=== PATIENT | female | born 1980 | race Caucasian/White ===

== ENCOUNTER 2016-12-12 08:37 | Emergency (ER) | payer MEDICAID ==
[~2016-12-12] VITALS: Ht 147.3 cm; Wt 66.3 kg
[2016-12-12 08:47] VITALS: BP 107/69
[2016-12-12] MEDS ORDERED: TYLENOL325 M2 PO (08:57)
--- NOTE | 2016-12-12 09:09 | NUR ---
36/F PRESENT TO ER C/O HEADACHE, NAUSEA, DIZZINESS x 2 DAYS. PAIN 5/10 ACHING NON-RADIATING. PT DENIES VOMITING OR DIARRHEA. PT DENIES TAKING ANY MEDS PRIOR TO ER VISIT. AAOx 4, PERRLA, BREATHING EVEN AND UNLABORED. ERMD NOTIFIED OF PATIENT STATUS.
[2016-12-12] MEDS ORDERED: HYDROmorphone PFS 2 MG/ML SYR IM ONE (09:40)
[2016-12-12] MEDS ORDERED: diphenhydrAMINE 50 MG/ML VIAL IM ONE (09:40)
--- NOTE | 2016-12-12 09:51 | NUR ---
PT TAKEN TO RADIOLOGY VIA WHEELCHAIR BY [facility].
--- NOTE | 2016-12-12 10:55 | NUR ---
ERMD ORDERED DILAUDID 2MG AND PT WAS GIVEN 2MG NON-WASTED
--- NOTE | 2016-12-12 11:03 | NUR ---
Patient discharged with v/s stable. Written and verbal after care instructions given and explained. Patient alert, oriented and verbalized understanding of instructions. Ambulatory with steady gait. All questions addressed prior to discharge. ID band removed. Patient advised to follow up with PMD. Rx of FIORICET TAB given. Patient educated on indication of medication including possible reaction and side effects. Opportunity to ask questions provided and answered.
[2016-12-12 11:04] VITALS: BP 121/71
== END 2016-12-12 11:03 | disposition home or self-care (01) ==
LOC: MED 08:37
DX: F43.9 Reaction to severe stress, unspecified (principal); F43.8 Other reactions to severe stress
CPT/HCPCS: 70450; 81002; 81025; 96372; 99284; J1170; J1200

== ENCOUNTER 2017-01-31 23:45 | Emergency (ER) | payer SELFPAY ==
[~2017-01-31] VITALS: Ht 147.3 cm; Wt 66.8 kg
[~2017-01-31 23:45] MED LIST: ACET-2619 PO
[2017-01-31 23:49] VITALS: BP 103/67
--- NOTE | 2017-02-01 00:05 | NUR ---
PT TAKEN TO BED 6
--- NOTE | 2017-02-01 00:29 | NUR ---
Dr. Parker evaluating patient at bedside.
--- NOTE | 2017-02-01 00:30 | NUR ---
PATIENT IS A 36 Y/O FEMALE WHO PRESENTS TO THE ED C/O ABD PAIN. PT STATES, "I HAVE BEEN HAVING THIS ABD PAIN FOR ABOUT 4 DAYS AND IT HURTS." PT REPORTS 5/10 ACHING ABD PAIN THAT DOES NOT RADIATE. PT DENIES CP, SOB, REPORTS NAUSEA, DENIES VOMITING/DIARRHEA. PT AAOX4, RR EVEN/UNLABORED. PT REPOSITIONED FOR COMFORT, BED IN LOWEST POSITION. ER MD DR. GUADARRAMA NOTIFIED. WILL CONTINUE TO MONITOR.
[2017-02-01] MEDS ORDERED: KETOROLAC 30 MG/ML VIAL IM ONE (00:50)
--- NOTE | 2017-02-01 01:44 | NUR ---
PT TAKEN TO ULTRASOUND
[2017-02-01] MEDS ORDERED: ACETAMINOPHEN EXTRA STRENGTH 500 MG TAB PO ONE (01:50)
--- NOTE | 2017-02-01 02:13 | NUR ---
PT RETURN FROM ULTRASOUND
[2017-02-01 02:29] LABS: APPEARANCE,URINE CLEAR (CLEAR); BILIRUBIN,URINE NEGATIVE (NEGATIVE); BLOOD, URINE NEGATIVE (NEGATIVE); COLOR,URINE YELLOW (YELLOW); LEUKOCYTE ESTERASE ,URINE NEGATIVE (NEGATIVE); NITRITE, URINE NEGATIVE (NEGATIVE); PH,URINE 6.5 (5.0-9.0); UGLUCOSE NEGATIVE (NEGATIVE)
[2017-02-01 03:00] VITALS: BP 115/72
--- NOTE | 2017-02-01 03:00 | NUR ---
Patient discharged with v/s stable. Written and verbal after care instructions given and explained. Patient alert, oriented and verbalized understanding of instructions. Ambulatory with steady gait. All questions addressed prior to discharge. ID band removed. Patient advised to follow up with PMD. Rx of ACETAMINOPHEN 500MG given. Patient educated on indication of medication including possible reaction and side effects. Opportunity to ask questions provided and answered.
== END 2017-02-01 03:00 | disposition home or self-care (01) ==
LOC: MED 23:45
DX: O20.0 Threatened abortion (principal); Z3A.01 Less than 8 weeks gestation of pregnancy; Z79.899 Other long term (current) drug therapy
CPT/HCPCS: 36415; 76817; 81003; 81025; 84702; 99285; G0480

== ENCOUNTER 2021-06-30 13:44 | Emergency (ER) | payer MEDICAID ==
[~2021-06-30] VITALS: Ht 147.3 cm; Wt 69.4 kg
[2021-06-30 13:59] VITALS: BP 152/92
--- NOTE | 2021-06-30 14:14 | NUR ---
41 Y/O FEMALE BIB SELF C/O ACHING BODY PAIN 8/10 [id number] THAT WORSENED TODAY WITH PAIN SHOOTING UP TO HER NECK, ARMS, AND LEGS. PT STATES THEY HAVE DIFFICULTY GETTING UP OUT OF BED BECAUSE OF THE PAIN. DENIES TRAUMA/INJURY, FEVER/CHILLS. FULL ROM NOTED ON ALL EXTREMITIES, BILATERAL HAND GRASPS. TAKES TYLENOL FOR THE PAIN WITH MINIMAL EFFECT. DENIES PMH NKA
--- NOTE | 2021-06-30 14:33 | NUR ---
DAVID GALVAN AT BEDSIDE FOR EVAL
[2021-06-30] MEDS ORDERED: KETOROLAC 15 MG/ML VIAL IM ONE (14:50)
--- NOTE | 2021-06-30 14:54 | NUR ---
PT AMBULATED WITH STEADY GAIT TO BATHROOM
--- NOTE | 2021-06-30 14:59 | NUR ---
LAB AT BEDSIDE
--- NOTE | 2021-06-30 15:11 | NUR ---
PT UNABLE TO PROVIDE URINE AT THIS TIME. INFORMED OF POSSIBLE EFFECTS OF KETOROLAC TO WOMEN, INFORMED RN THAT THEY HAVE HAD A TUBAL LIGATION 4 YEARS AGO AND THAT THE POSSIBILITY OF THEM BEING WAS SLIM. PT GAVE VERBAL CONSENT FOR THE MEDICATION.
--- NOTE | 2021-06-30 15:35 | NUR ---
OFFERED 6 CUPS OF WATER TO THE PATIENT, UNABLE TO PROVIDE URINE AT THIS TIME
--- NOTE | 2021-06-30 15:38 | NUR ---
PT STATES DECREASE IN PAIN SENSATION FROM AN 8/10 TO A 5/10
--- NOTE | 2021-06-30 15:55 | NUR ---
WALKED URINE SAMPLE TO LAB
--- NOTE | 2021-06-30 15:55 | NUR ---
PT WHEELED TO XRAY
--- NOTE | 2021-06-30 16:08 | NUR ---
PT BACK FROM XRAY
[2021-06-30 16:14] LABS: APPEARANCE,URINE CLEAR (CLEAR); BILIRUBIN,URINE NEGATIVE (NEGATIVE); BLOOD, URINE NEGATIVE (NEGATIVE); COLOR,URINE YELLOW (YELLOW); LEUKOCYTE ESTERASE ,URINE NEGATIVE (NEGATIVE); NITRITE, URINE NEGATIVE (NEGATIVE); UGLUCOSE NEGATIVE (NEGATIVE)
[2021-06-30] MEDS ORDERED: CYCL-711 PO (16:18)
[2021-06-30 16:27] VITALS: BP 114/69
--- NOTE | 2021-06-30 17:05 | NUR ---
CALLED CT SCAN, [place] STATED THAT THEY WOULD BE COMING SOON
--- NOTE | 2021-06-30 17:32 | NUR ---
BACK FROM CT SCAN
--- NOTE | 2021-06-30 18:18 | NUR ---
SLING APPLIED TO RT ARM
--- NOTE | 2021-06-30 18:18 | NUR ---
Patient discharged with v/s stable. Written and verbal after care instructions given and explained. Patient alert, oriented and verbalized understanding of instructions. Ambulatory with steady gait. All questions addressed prior to discharge. ID band removed. Patient advised to follow up with PMD. Rx of FLEXERIL given. Patient educated on indication of medication including possible reaction and side effects. Opportunity to ask questions provided and answered.
== END 2021-06-30 18:18 | disposition home or self-care (01) ==
LOC: MED 13:44
DX: M54.59 Other low back pain (principal); M25.511 Pain in right shoulder; W11.XXXA Fall on and from ladder, initial encounter; Y93.89 Activity, other specified; Y92.89 Other specified places as the place of occurrence of the external cause; Y99.8 Other external cause status
CPT/HCPCS: 36415; 72100; 72192; 73030; 81003; 81025; 84702; 96372; 99285; J1885

== ENCOUNTER 2023-06-20 18:38 | Emergency (ER) | payer MEDICAID, OTHER ==
[~2023-06-20] VITALS: Ht 149.9 cm; Wt 73.5 kg
[~2023-06-20 18:38] MED LIST changes: +CYCL-711 PO
[2023-06-20 18:56] VITALS: BP 130/70; PULSE 74; RESP 18; TEMP 96.8; O2SAT 99
[2023-06-20 21:19] LABS: BASOPHILS % (AUTO) 0.5 % (0.0-2.0); EOSINOPHILS # (AUTO) 0.2 K/uL (0-0.4); EOSINOPHILS % (AUTO) 2.2 % (0.0-4.0); LYMPHOCYTES # (AUTO) 3.7 K/uL (2.5-16.5); MEAN CORPUSCULAR HEMOGLOBIN 29 pg (27-31); MEAN CORPUSCULAR HGB CONC 34 g/dL (33-37); MONOCYTES # (AUTO) 0.5 K/uL (0.8-1.0); MONOCYTES % (AUTO) 5.9 % (1.7-9.3); NEUTROPHILS # (AUTO) 4.6 K/uL (1.8-7.7); NEUTROPHILS % (AUTO) 50.4 % (42.2-75.2); PLATELET COUNT (AUTO) 374 K/uL (140-450); RED BLOOD CELL COUNT(AUTO) 4.77 MIL/uL (4.20-5.40); WHITE BLOOD COUNT (AUTO) 9.1 K/uL (4.8-10.8)
[2023-06-20 21:36] LABS: ANION GAP 12.6 (8-16); CALCIUM 9.2 mg/dL (8.5-10.1); CARBON DIOXIDE 26.5 mmol/L (21-32); CREATININE 0.7 mg/dL (0.6-1.3); POTASSIUM 4.1 mmol/L (3.5-5.1)
[2023-06-20] MEDS ORDERED: ZOLP5TAB1 PO (23:27)
== END 2023-06-20 23:32 | disposition home or self-care (01) ==
LOC: MED 18:38
DX: F43.9 Reaction to severe stress, unspecified (principal); F32.A Depression, unspecified; G47.00 Insomnia, unspecified; Z79.899 Other long term (current) drug therapy
CPT/HCPCS: 36415; 71045; 80048; 84484; 85025; 93005; 99285

== ENCOUNTER 2023-12-08 11:49 | Emergency (ER) | payer MEDICAID, OTHER ==
[~2023-12-08] VITALS: Ht 157.5 cm; Wt 86.2 kg
[~2023-12-08 11:49] MED LIST changes: +ZOLP5TAB1 PO
[2023-12-08 12:08] VITALS: BP 121/76; PULSE 82; RESP 18; TEMP 97.9; O2SAT 98
[2023-12-08 13:56] LABS: FLU A ANTIGEN negative (NEGATIVE); FLU B ANTIGEN NEGATIVE (NEGATIVE)
[2023-12-08] MEDS ORDERED: PROM118S5 PO (14:06)
[2023-12-08] MEDS ORDERED: IBUP-2213 PO (14:06)
== END 2023-12-08 14:11 | disposition home or self-care (01) ==
LOC: MED 11:49
DX: J06.9 Acute upper respiratory infection, unspecified (principal); B97.89 Other viral agents as the cause of diseases classified elsewhere; Z20.822 Contact with and (suspected) exposure to COVID-19; Z79.899 Other long term (current) drug therapy
CPT/HCPCS: 71045; 99284